=== PATIENT | male | born 1995 | race Caucasian/White ===

== ENCOUNTER 2021-05-20 07:50 | Emergency (ER) | payer MEDICAID, SELFPAY ==
[2021-05-20 07:51] VITALS: BP 134/74; PULSE 92; RESP 21; O2SAT 99
[2021-05-20 07:52] VITALS: BP 133/74; PULSE 95; RESP 19; TEMP 36.8; O2SAT 95; BMI 20.4
--- NOTE | 2021-05-20 08:07 | CT_ITS ---
STUDY: CT BRAIN WITHOUT CONTRAST REASON FOR EXAM: Male, 26 years old. Seizure RADIATION DOSAGE (If Supplied By Facility): CTDIvol = ( 44.99 ) mGy, DLP = ( 762.36 ) mGycm TECHNIQUE: Transaxial CT imaging of the brain was performed without administration of intravenous contrast material. Individualized dose optimization techniques were used for this CT. COMPARISON: No relevant priors. FINDINGS: Normal soft tissue structures. Normal calvarium. Normal size ventricles and extra-axial spaces for the patient''s age. Normal white matter tracts of the cerebral hemispheres. Normal basal ganglia and thalami. Normal brainstem. Normal cerebellum. There is no intracranial hemorrhage. There are no findings of an acute ischemic infarction. There is a 1.4 cm retention cyst or polyp along the anterior inferior aspect of the right maxillary sinus CT/Brain/Head without Contrast IMPRESSION: Normal unenhanced CT scan of the brain. Electronically Signed: Jayjay Redding MD at 9:02 EST ,
--- NOTE | 2021-05-20 08:07 | RAD_ITS ---
STUDY: X-RAY CHEST REASON FOR EXAM: Male, 26 years old. Fever TECHNIQUE: Single AP portable view of the chest. COMPARISON: None. FINDINGS: EKG electrodes are seen. The lungs are clear and expanded. There is no demonstrated pleural abnormality. Normal size heart. Normal mediastinum and manjeet. Normal visualized pulmonary arteries. Normal visualized aortic arch and descending thoracic aorta. Normal visualized thoracic spine. Normal visualized ribs, clavicles, and shoulders. There is no demonstrated abnormality of the visualized soft tissue structures of the upper abdomen. RAD/Chest 1 View (Portable) IMPRESSION: Normal x-ray examination of the chest. Electronically Signed: Jayjay Redding MD at 9:06 EST ,
--- NOTE | 2021-05-20 08:08 | CT_ITS ---
STUDY: CT ABDOMEN AND PELVIS WITH CONTRAST REASON FOR EXAM: Male, 26 years old. Abdominal pain and vomiting. Patient had a seizure today. RADIATION DOSAGE (If Supplied By Facility): CTDIvol = ( 13.90 ) mGy, DLP = ( 619.42 ) mGycm TECHNIQUE: Transaxial images were obtained from the dome of the diaphragm to the symphysis pubis without oral contrast. IV 100mL Isovue-370 was administered. Sagittal and coronal images were reconstructed. Individualized dose optimization techniques were used for this CT. COMPARISON: None. FINDINGS: The visualized lung bases are unremarkable. The visualized portions of the heart are within normal limits. Normal liver. Normal gallbladder and extrahepatic biliary system. Normal spleen. Normal pancreas. Normal bilateral adrenal glands. Normal right kidney. Normal left kidney. Normal visualized stomach. Normal small intestine. Normal colon. The appendix is visualized and appears normal. Normal abdominal aorta. Normal inferior vena cava. Normal retroperitoneum. Mildly distended urinary bladder. Normal abdominal wall. Normal osseous structures. CT/Abdomen/Pelvis W IV Cont ONLY IMPRESSION: Normal enhanced CT of the abdomen and pelvis. Mildly distended urinary bladder. Electronically Signed: Jayjay Redding MD at 9:05 EST ,
[2021-05-20 08:16] LABS: Absolute Lymphocyte Count 1.15 X10^3/uL (0.83-4.51); Absolute Neutrophil Count 3.4 X10^3/uL (2.0-7.7); Basophil# 0.03 X10^3/uL; Basophil% 0.6 % (0-1); Eosinophil# 0.01 X10^3/uL; Eosinophils% 0.2 % (0-5); Hematocrit 40.7 % (40-54); Hemoglobin 14.7 g/dL (13.0-16.5); Lymphocyte # 1.15 X10^3/ul (0.83-4.51); Lymphocyte % 21.5 % (19-41); Mean Corp Hgb Conc 36.1 g/dL (32-36); Mean Corpuscular Hgb 31.7 pg (27.0-32.0); Mean Corpuscular Volume 87.7 fL (80-94); Mean Platelet Vol. 8.4 fl (6.2-12.0); Monocyte# 0.75 X10^3/uL; NRBC Flagged by Analyzer 0 % (0-5); Neutrophil # 3.38 X10^3/uL (2.7-7.7); Neutrophil % 63.3 % (47-70); Platelet Count 179 K/mm3 (150-450); RBC Distribution Width CV 11.7 % (11.6-14.6); RBC Distribution Width SD 37.2 fl (35.1-43.9); Red Blood Count 4.64 M/mm3 (4.6-6.2); White Blood Count 5.3 K/mm3 (4.4-11.0)
[2021-05-20 08:31] LABS: ALB/GLOB Ratio 1.4 RATIO (0.9-2.4); AST(SGOT) 18 U/L (15-37); Alanine Aminotransfer ALT/SGPT 24 U/L (16-61); Albumin, Serum 4.1 g/dL (3.2-5.0); Alkaline Phosphatase 54 U/L (45-117); Anion Gap 5 (5-15); BUN 16 mg/dL (7-18); BUN/Creat Ratio 14.7 RATIO (10-20); Calcium,Total 8.5 mg/dL (8.5-10.1); Chloride 108 mmol/L (98-107); Creatinine, Serum 1.09 mg/dL (0.70-1.30); EST Glomerular Filtration Rate 88 mL/min (>60); Est Glom Filt Rate - Afr Amer 107 mL/min (>60); Estimated Creatinine Clearance 103.91 ml/min; Glucose 140 mg/dL (74-106); Lipase 38 U/L (73-393); Potassium 3.5 mmol/L (3.5-5.1); Protein, Total 7.1 g/dL (6.4-8.2); Sodium Level 139 mmol/L (136-145)
[2021-05-20] MEDS: 0.9% Normal Saline 1,000 ML 1000 ML IV (08:31)
[2021-05-20] MEDS: Ondansetron 4 MG/2 ML Vial IV (08:32)
--- NOTE | 2021-05-20 08:37 | ED.RN ---
pt slightly more alert now. nodding head for this rn . updated on testing ordered. iv zofran given for more nausea and gagging. pt 100% on ra. seizure pads in place and father at bedside.
[2021-05-20 08:51] VITALS: BP 138/68; PULSE 87; RESP 20; O2SAT 99
--- NOTE | 2021-05-20 08:59 | EX.ED.DYSGE1 ---
HPI History of Present Illness Chief Complaint: Seizure Informant: parent Narrative Narrative: 26-year-old male presenting to the emergency department with a chief complaint of seizure. Patient recently went to his doctor and was prescribed erythromycin for URI symptoms. This morning was noted to be nauseous and had altered mental status. Patient was vomiting and family states that it seemed like his hands were clenched. And he was not responding normally. There is no loss of consciousness but they felt that this was more of a seizure-like activity. EMS was called. He does not currently have a fever but recently did when he went to the doctor. PFSH PFSH Medical History no medical history Home Medications ondansetron 4 mg PO Q6H PRN PRN #15 tab 05/20/21 [Rx Last Taken Unknown] Allergy/AdvReac Type Severity Reaction Status Date / Time No Known Allergies Allergy Verified 05/16/14 13:28 Surgical History no surgical history Social History (Updated 05/20/21 @ 10:[address] Memo Epperson, DO) current gender identity: male Smoking Status: Never smoker ROS ROS ED Constitutional Constitutional ED: Reports fever(s); Denies chills or weight loss Eyes Eyes: Denies change in vision or diplopia ENT ENT ED: Reports rhinorrhea; Denies ear pain or sore throat Cardiovascular Cardiovascular: Denies chest pain, orthopnea, palpitations or racing heartbeat Respiratory/Chest Respiratory/Chest: Reports cough; Denies dyspnea or orthopnea Gastrointestinal Gastrointestinal: Reports diarrhea, nausea and vomiting; Denies abdominal pain Genitourinary Genitourinary ED: Denies dysuria, hematuria or urinary frequency Musculoskeletal Musculoskeletal: Denies arthralgias or myalgias Integumentary Denies abscess or rash Neurologic Neurologic: Denies headache(s) or weakness Psychiatric Psychiatric: Denies anxiety, depression, suicidal ideation or suicidal thoughts Endocrine Endocrinology: Denies polydipsia, polyphagia or polyuria Allergic/Immunologic Allergic/Immunologic ED: Denies mouth swelling, tongue swelling or urticaria EXAM Physical Exam Const Vital Signs: 05/20/21 07:51 05/20/21 07:52 05/20/21 08:51 Temperature 98.2 F Temperature Source Temporal Pulse Rate 92 95 87 Respiratory Rate 21 H 19 H 20 H Blood Pressure 134/74 H 133/74 H 138/68 H Blood Pressure Mean 94 93 91 Pulse Ox 99 95 99 Oxygen Delivery Method Room Air Room Air Room Air Positive well nourished and well developed General Appearance ED: well developed HEENT Reports normocephalic, head/scalp atraumatic, TM's clear and moist mucous membranes HEENT Narrative: Mild turbinate edema Negative for trauma Tympanic Membrane ED: Yes TM's clear Eyes PERRL and EOMs intact bilaterally Neck no lymphadenopathy, supple and no JVD Resp normal respiratory effort and clear to auscultation bilaterally Cardio regular rate, regular rhythm and no murmurs GI normal to inspection, nondistended, normoactive bowel sounds and non-tender Palpation: soft Back/Spine no CVA tenderness and normal ROM Extremity normal to inspection General Extremety ED: Negative for edema General Extremity: Negative for edema Neuro oriented x3 and CN's II-XII intact bilaterally Sensorium / Orientation: alert and lethargic Motor Exam: strength 5/5 throughout Psych Mood & Affect: Negative for depressed or tearful Skin no rashes or lesions noted and no wounds MDM MDM MDM Narrative Medical decision making narrative: CT the brain was negative. CT of the abdomen pelvis was negative. My interpretation of the chest x-ray is no acute process. Basic blood work was normal except for glucose of 140. Lactic acid is 1. Patient did test Covid positive. Urinalysis shows no infection toxicology does reveal methamphetamines. My opinion is that the patient was having more of a vagal episode and passing out rather than a seizure. The activity described without a loss of consciousness and in the setting of vomiting as well as a negative work-up suggest this. He has been able to ambulate. Lab Data Attestation: I reviewed the patient's lab results. Labs: Laboratory Results - last 24 hr 05/20/21 05/20/21 05/20/21 07:50 07:50 08:10 WBC 5.3 RBC 4.64 Hgb 14.7 Hct 40.7 MCV 87.7 MCH 31.7 MCHC 36.1 H RDW Std Deviation 37.2 RDW Coeff of Vidhi 11.7 Plt Count 179 MPV 8.4 Immature Gran % (Auto) 0.400 Neut % (Auto) 63.3 Lymph % (Auto) 21.5 [place] % (Auto) 14.0 H Eos % (Auto) 0.2 Baso % (Auto) 0.6 Absolute Neuts (auto) 3.4 Absolute Lymphs (auto) 1.15 Nucleated RBC % 0 Sodium 139 Potassium 3.5 Chloride 108 H Carbon Dioxide 26.0 Anion Gap 5 BUN 16 Creatinine 1.09 Estim Creat Clear Calc 103.91 Est GFR (MDRD) Af Amer 107 Est GFR (MDRD) Non-Af 88 BUN/Creatinine Ratio 14.7 Glucose 140 H Lactic Acid 1.0 Calcium 8.5 Total Bilirubin 0.60 AST 18 ALT 24 Alkaline Phosphatase 54 Total Protein 7.1 Albumin 4.1 Globulin 3.0 Albumin/Globulin Ratio 1.4 Lipase 38 L Urine Color Urine Clarity Urine pH Ur Specific [place] Urine Protein Urine Glucose (UA) Urine Ketones Urine Occult Blood Urine Nitrite Urine Bilirubin Urine Urobilinogen Ur Leukocyte Esterase Urine RBC Urine WBC Ur Squamous Epith Cells Urine Bacteria Urine Mucus Urine Opiates Screen Urine Methadone Screen Ur Barbiturates Screen Ur Phencyclidine Scrn Ur Amphetamines Screen U Methamphetamin-MDMA U Benzodiazepines Scrn Urine Cocaine Screen U Cannabinoids Screen Ur Drug Screen Comment 05/20/21 05/20/21 10:30 10:30 WBC RBC Hgb Hct MCV MCH MCHC RDW Std Deviation RDW Coeff of [place]hi Plt Count MPV Immature Gran % (Auto) Neut % (Auto) Lymph % (Auto) [place] % (Auto) Eos % (Auto) Baso % (Auto) Absolute Neuts (auto) Absolute Lymphs (auto) Nucleated RBC % Sodium Potassium Chloride Carbon Dioxide Anion Gap BUN Creatinine Estim Creat Clear Calc Est GFR (MDRD) Af Amer Est GFR (MDRD) Non-Af BUN/Creatinine Ratio Glucose Lactic Acid Calcium Total Bilirubin AST ALT Alkaline Phosphatase Total Protein Albumin Globulin Albumin/Globulin Ratio Lipase Urine Color Yellow Urine Clarity Clear Urine pH 5.0 Ur Specific [place] 1.010 Urine Protein Negative Urine Glucose (UA) Normal Urine Ketones 50 H Urine Occult Blood Negative Urine Nitrite Negative Urine Bilirubin Negative Urine Urobilinogen Normal Ur Leukocyte Esterase Negative Urine RBC 0 SEEN Urine WBC 0 SEEN Ur Squamous Epith Cells 0-5 SEEN Urine Bacteria 0 SEEN Urine Mucus 0 SEEN Urine Opiates Screen NEGATIVE Urine Methadone Screen NEGATIVE Ur Barbiturates Screen NEGATIVE Ur Phencyclidine Scrn NEGATIVE Ur Amphetamines Screen NEGATIVE U Methamphetamin-MDMA POSITIVE H U Benzodiazepines Scrn NEGATIVE Urine Cocaine Screen NEGATIVE U Cannabinoids Screen NEGATIVE Ur Drug Screen Comment Radiography Diagnostic Testing: Clinical Impression(s) from Imaging Studies Brain CT 05/20/21 08:07 IMPRESSION: Normal unenhanced CT scan of the brain. Electronically Signed: Jayjay Redding MD at 9:02 EST , Chest X-Ray 05/20/21 08:07 IMPRESSION: Normal x-ray examination of the chest. Electronically Signed: Jayjay Redding MD at 9:06 EST , Abdomen/Pelvis CT 05/20/21 08:08 IMPRESSION: Normal enhanced CT of the abdomen and pelvis. Mildly distended urinary bladder. Electronically Signed: Jayjay Redding MD at 9:05 EST , Discharge Plan Triage Chief Complaint: Seizure ED Provider: Memo Epperson Dx/Rx/DC Orders Clinical Impression: COVID-19, Syncope, Vomiting Instructions: Coronavirus Disease 2019 (COVID-19): Caring for Yourself or Others, Understanding Vasovagal Syncope Prescriptions: New ondansetron [ondansetron] 4 MG tablet 4 mg PO Q6H PRN PRN (Reason: Nausea) Qty: 15 RF: 0 Primary Care Provider: Osman Yeh Referrals: Osman Yeh DO [Primary Care Provider] - As Needed Activity Restrictions/Additional Instructions: I would discontinue the erythromycin. Disposition Disposition: Home, Self Care
[2021-05-20] MEDS: 0.9% Normal Saline 1,000 ML 150 ML IV (09:34)
[2021-05-20 10:34] LABS: Bacteria 0 SEEN /hpf (None Seen); Mucous, Urine 0 SEEN /hpf (<or=2+); Red Blood Cells-Urine 0 SEEN /hpf (0-5); White Blood Cells 0 SEEN /hpf (0-5)
[2021-05-20 10:36] LABS: Color, Urine Yellow (Yellow); Glucose, Dipstick Normal (Normal); Ketone-Dipstick 50 mg/dl (Negative); Leukocyte Esterase-Dipstick Negative /ul (Negative); Nitrite-Dipstick Negative (Negative); Occult Blood-Urine Negative /ul (Negative); Protein-Dipstick Negative (Negative); Urine Bilirubin Dipstick Negative (Negative); Urine Clarity Clear (Clear); Urine Urobilinogen Normal (Normal)
[2021-05-20 10:46] LABS: Squamous Epithelial Cells - UA 0-5 SEEN /hpf (0-5)
[2021-05-20 10:49] LABS: Amphetamine Urine VISTA NEGATIVE (<1000 ng/mL); Barbiturate Urine VISTA NEGATIVE (< 200 ng/mL); Benzodiazepine Urine VISTA NEGATIVE (< 200 ng/mL); Cocaine Urine VISTA NEGATIVE (< 300 ng/mL); Ecstacy Urine VISTA POSITIVE (< 500 ng/mL); Methadone Urine VISTA NEGATIVE (< 300 ng/mL); PCP Urine VISTA NEGATIVE (< 25 ng/mL); THC Urine VISTA NEGATIVE (< 50 ng/mL); Vista UDS pH Range 5
[2021-05-20 11:00] VITALS: BP 135/78; PULSE 88; RESP 16; O2SAT 98
[2021-05-20 11:36] VITALS: BP 135/78; PULSE 78; RESP 14; TEMP 36.6; O2SAT 97
[2021-05-20 13:40] VITALS: BP 125/85; PULSE 68; RESP 16; TEMP 36.9; O2SAT 98
--- NOTE | 2021-05-20 14:10 | NURSING ---
CALLED [facility], ETA IS 2 HRS
== END 2021-05-20 14:27 | disposition home or self-care (01) ==
PROVIDERS: Emergency Provider Emergency Medicine; PCP Student in an Organized Health Care Education/Training Program; Visit Provider Emergency Medicine
DX: U07.1 COVID-19 (principal); R55 Syncope and collapse
CPT/HCPCS: 70450; 71045; 74177; 80053; 80307; 81001; 83605; 83690; 85025; 87426; 87804; 96361; 96374; 99285; J7030; Q9967; A4216; J2405

== ENCOUNTER 2024-08-18 16:12 | Emergency (ER) | payer MEDICAID, SELFPAY ==
[2024-08-18 16:13] VITALS: BP 121/72; PULSE 53; RESP 15; TEMP 36.8; O2SAT 100; BMI 21.2
--- NOTE | 2024-08-18 17:51 | EDS_ITS ---
HPI HPI - GI History of Present Illness Chief Complaint: Diarrhea Informant: patient and parent Diarrhea/Melena/Hematochezia GI Symptom: Positive for Diarrhea Onset: Weeks Stool Quality: Positive for Loose Severity: Moderate Associated Symptoms Associated Symptoms: Negative for Dysuria, Frequency, Hematuria or Urgency Narrative Narrative: 29-year-old male who is new with his mother with surgical history currently on no meds. States has had diarrhea for the last 18 days about 8-10 episodes per day. Denies any blood. No nausea. No pain. No vomiting. Denies any prior abdominal surgeries. They drink well water. But there is 7 other people in the home and none of them have been ill or had diarrhea. Prior similar symptoms: Yes Recent Illness/Hospitalization: No PFSH PFSH Medical History no medical history no medical history Home Medications ?Medication ?Instructions ?Recorded ?Last Taken ?Type NK 08/18/24 Unknown History Allergy/AdvReac Type Severity Reaction Status Date / Time No Known Allergies Allergy Verified 08/18/24 16:13 Social History Smoking Status: Never smoker ROS ROS ED ROS Narrative Diarrhea. Constitutional Constitutional ED: Denies chills or fever(s) ENT ENT ED: Denies ear pain Cardiovascular Cardiovascular: Denies chest pain Respiratory/Chest Respiratory/Chest: Denies cough or dyspnea Gastrointestinal Gastrointestinal: Reports diarrhea; Denies abdominal pain, constipation, melena, nausea or vomiting Genitourinary Genitourinary ED: Denies dysuria or hematuria Musculoskeletal Musculoskeletal: Denies arthralgias or back pain Integumentary Denies abscess or Abrasions Neurologic Neurologic: Denies headache(s) Endocrine Endocrinology: Denies polydipsia Hematologic/Lymphatic Hematologic/Lymphatic: Denies easy bleeding Allergic/Immunologic Allergic/Immunologic ED: Denies mouth swelling, tongue swelling or urticaria EXAM Physical Exam Narrative Exam Narrative: Well-appearing 29-year-old male. Vital signs are stable afebrile. He is no distress. Sitting upright in bed. Mom present in the room. H EENT exam pupils round react to light. Very moist mucous membranes. Neck nontender no lymphadenopathy. Lungs clear to auscultation. Heart bradycardic rate in the 50s no murmur. Chest wall and ribs nontender. Abdomen soft nontender. Normal bowel sounds no peritoneal signs. No localizing tenderness. No distention. Moving all 4 extremities. Nontender no edema. Back nontender. Neurologically is awake and alert no focal motor deficits. Skin unremarkable. Const Vital Signs: 08/18/24 16:13 08/18/24 18:17 Temperature 98.3 F Temperature Source Oral Pulse Rate 53 L 57 L Respiratory Rate 15 16 Blood Pressure 121/72 H 122/65 H Blood Pressure Mean 88 84 Pulse Ox 100 98 Oxygen Delivery Method Room Air Positive well nourished and well developed; Negative for obese, cachectic, contractures or unkempt General Appearance ED: well developed and NAD; Negative for unkempt, cachectic, contractures or pallor Nutritional Appearance: Negative for cachectic or obese HEENT Reports moist mucous membranes normocephalic and atraumatic Eyes PERRL and EOMs intact bilaterally Neck no lymphadenopathy, supple and no JVD Resp normal respiratory effort and clear to auscultation bilaterally Effort and Inspection: Negative for respiratory distress Auscultation: Negative for rales, rhonchi, wheezes or diminished lung sounds Cardio regular rate, regular rhythm, S1 normal heart sound, S2 normal heart sound and no murmurs Rate: Negative for bradycardia or tachycardic Rhythm: Negative for abnormal rhythm GI non-tender, non-distended and no masses Inspection: Negative for abdominal distention Auscultation: normoactive bowel sounds Palpation: soft; Negative for tender, guarding or rebound tenderness present Back/Spine no CVA tenderness General Back: Negative for CVA tenderness Cervical Spine: Negative for cervical spine tenderness Thoracic Spine / Upper Back: Negative for thoracic spinal tenderness Lumbar Spine / Lower Back: Negative for lumbar spinal tenderness Extremity full ROM General Extremety ED: Negative for edema or tenderness General Extremity: Negative for edema Neuro CN's II-XII intact bilaterally Sensorium / Orientation: alert, oriented to person, oriented to place and oriented to time; Negative for orientation impaired, confused or lethargic Motor Exam: strength 5/5 throughout Psych mental status grossly normal and thought process normal Appearance: Negative for unkempt Attitude: No agitated Mood & Affect: Negative for depressed, anxious or tearful Skin no wounds General Skin Exam: Negative for jaundice or pallor Lesions: no lesions Rashes: no rashes Trauma: Negative for abrasion Nails: Negative for discolored MDM MDM MDM Narrative Medical decision making narrative: 29-year-old [facility] male with diarrhea for 18 days. Exam is totally normal. His abdomen is benign and nontender. He is well-hydrated. He has already been seen at the [facility] had negative (sorts and reportedly negative blood work. I will send screening labs. He will be referred to GI for further evaluation. Repeat exam patient is doing well. Be discharged home with outpatient follow-up with GI. Imodium for the diarrhea. Fluids and rest. History & Record Review Discussion w/independent historian: Patient Additional record(s) reviewed:: Prior inpatient record, Prior outpatient record, Prior ED visit and Prior labs Lab Data Attestation: I reviewed the patient's lab results. Lab results narrative: CBC normal. White count of 6. H&H 13 and 36. Platelets 227. Electrolytes are normal. Gap of 8. BUN and creatinine of 17 and 0.9. Glucose is 91. Liver enzymes are normal. Labs: Laboratory Results - last 24 hr 08/18/24 17:56 WBC 6.1 RBC 4.17 L Hgb 13.0 Hct 36.6 L MCV 87.8 MCH 31.2 MCHC 35.5 RDW Std Deviation 37.7 RDW Coeff of Vidhi 11.8 Plt Count 227 MPV 8.7 Immature Gran % (Auto) 0.200 Neut % (Auto) 49.9 Lymph % (Auto) 40.8 [place] % (Auto) 6.6 Eos % (Auto) 2.0 Baso % (Auto) 0.5 Absolute Neuts (auto) 3.0 Absolute Lymphs (auto) 2.47 Nucleated RBC % 0 Sodium 140 Potassium 4.4 Chloride 109 H Carbon Dioxide 23.2 Anion Gap 8 BUN 17 Creatinine 0.93 Estim Creat Clear Calc 123.36 Est GFR (MDRD) Non-Af 115 BUN/Creatinine Ratio 18.2 Glucose 91 Calcium 8.9 Total Bilirubin 0.16 AST 32 ALT 20 Alkaline Phosphatase 80 Total Protein 6.4 Albumin 4.2 Globulin 2.2 Albumin/Globulin Ratio 1.9 Discharge Plan Triage Chief Complaint: Diarrhea ED Provider: Juve Mondragon Dx/Rx/DC Orders Clinical Impression: Diarrhea Instructions: ED Diarrhea, Unknown Cause Prescriptions: No Action NK Primary Care Provider: Osman Yeh Referrals: Osman Yeh DO [Primary Care Provider] - FriendStiven DO [Med Staff - Active Staff] - As soon as possible Activity Restrictions/Additional Instructions: Follow-up with GI either Dr. Mayer's office or with the [facility]. For further evaluation of your diarrhea. If it is not improving you may need a colonoscopy for further evaluation and possible biopsy of your colon. Plenty of fluids. Imodium for diarrhea. Print Language: Korean Disposition Disposition: Home, Self Care
[2024-08-18 18:16] LABS: Absolute Lymphocyte Count 2.47 X10^3/uL (0.83-4.51); Basophil# 0.03 X10^3/uL; Basophil% 0.5 % (0-1); Eosinophil# 0.12 X10^3/uL; Hematocrit 36.6 % (40-54); Lymphocyte # 2.47 X10^3/ul (0.83-4.51); Lymphocyte % 40.8 % (19-41); Mean Corp Hgb Conc 35.5 g/dL (32-36); Mean Corpuscular Hgb 31.2 pg (27.0-32.0); Mean Corpuscular Volume 87.8 fL (80-94); Mean Platelet Vol. 8.7 fl (6.2-12.0); Monocyte% 6.6 % (0-10); NRBC Flagged by Analyzer 0 % (0-5); Neutrophil # 3.03 X10^3/uL (2.7-7.7); Neutrophil % 49.9 % (47-70); Platelet Count 227 K/mm3 (150-450); RBC Distribution Width CV 11.8 % (11.6-14.6); RBC Distribution Width SD 37.7 fl (35.1-43.9); Red Blood Count 4.17 M/mm3 (4.6-6.2); White Blood Count 6.1 K/mm3 (4.4-11.0)
[2024-08-18 18:17] VITALS: BP 122/65; PULSE 57; RESP 16; O2SAT 98
[2024-08-18 18:28] LABS: ALB/GLOB Ratio 1.9 RATIO (0.9-2.4); AST(SGOT) 32 U/L (<=37); Alanine Aminotransfer ALT/SGPT 20 U/L (<=46); Albumin, Serum 4.2 g/dL (3.5-5.0); Alkaline Phosphatase 80 U/L (40-129); Anion Gap 8 (5-15); BUN 17 mg/dL (4-19); BUN/Creat Ratio 18.2 RATIO (10-20); Calcium,Total 8.9 mg/dL (7.6-11.0); Carbon Dioxide 23.2 mmol/L (21.0-32.0); Chloride 109 mmol/L (98-108); Creatinine, Serum 0.93 mg/dL (0.70-1.20); EST Glomerular Filtration Rate 115 (>60); Estimated Creatinine Clearance 123.36 ml/min (50-250); Globulin 2.2 g/dL (2.2-4.2); Glucose 91 mg/dL (70-99); Potassium 4.4 mmol/L (3.3-5.1); Protein, Total 6.4 g/dL (5.9-8.4); Sodium Level 140 mmol/L (133-145); Total Bilirubin 0.16 mg/dL (0.00-1.30)
[2024-08-18 19:03] VITALS: BP 120/75; PULSE 60; RESP 19; TEMP 37; O2SAT 98
== END 2024-08-18 19:03 | disposition home or self-care (01) ==
PROVIDERS: Emergency Provider Emergency Medicine; PCP Student in an Organized Health Care Education/Training Program; Visit Provider Emergency Medicine
DX: R19.7 Diarrhea, unspecified (principal)
CPT/HCPCS: 80053; 85025; 99283; A4216

== ENCOUNTER → 2024-08-20 | Outpatient (CLI) | payer MEDICAID, SELFPAY ==
[2024-08-20 12:03] LABS: Erythrocyte Sedimentation Rate < 1 mm/hr (0-20)
[2024-08-20 12:26] LABS: Absolute Lymphocyte Count 1.98 X10^3/uL (0.83-4.51); Absolute Neutrophil Count 3.4 X10^3/uL (2.0-7.7); Basophil# 0.03 X10^3/uL; Basophil% 0.5 % (0-1); Eosinophils% 1.7 % (0-5); Hematocrit 39.1 % (40-54); Hemoglobin 13.7 g/dL (13.0-16.5); Lymphocyte # 1.98 X10^3/ul (0.83-4.51); Lymphocyte % 33.1 % (19-41); Mean Corpuscular Volume 88.5 fL (80-94); Mean Platelet Vol. 8.6 fl (6.2-12.0); Monocyte# 0.52 X10^3/uL; Monocyte% 8.7 % (0-10); NRBC Flagged by Analyzer 0 % (0-5); Neutrophil # 3.35 X10^3/uL (2.7-7.7); Neutrophil % 55.8 % (47-70); Platelet Count 245 K/mm3 (150-450); RBC Distribution Width CV 11.5 % (11.6-14.6); RBC Distribution Width SD 37.2 fl (35.1-43.9); Red Blood Count 4.42 M/mm3 (4.6-6.2)
[2024-08-20 12:41] LABS: ALB/GLOB Ratio 1.8 RATIO (0.9-2.4); AST(SGOT) 25 U/L (<=37); Alanine Aminotransfer ALT/SGPT 18 U/L (<=46); Albumin, Serum 4.4 g/dL (3.5-5.0); Alkaline Phosphatase 86 U/L (40-129); Anion Gap 8 (5-15); BUN 12 mg/dL (4-19); BUN/Creat Ratio 12.9 RATIO (10-20); Calcium,Total 9.4 mg/dL (7.6-11.0); Carbon Dioxide 26.1 mmol/L (21.0-32.0); Chloride 106 mmol/L (98-108); Creatinine, Serum 0.95 mg/dL (0.70-1.20); EST Glomerular Filtration Rate 113 (>60); Globulin 2.5 g/dL (2.2-4.2); Glucose 86 mg/dL (70-99); Potassium 4.2 mmol/L (3.3-5.1); Protein, Total 6.8 g/dL (5.9-8.4); Sodium Level 141 mmol/L (133-145)
[2024-08-20 12:48] LABS: CRP < 3.00 mg/L (0.0-3.0)
== END | disposition home or self-care (01) ==
LOC: LAB 11:19
PROVIDERS: PCP Student in an Organized Health Care Education/Training Program; Referring Provider Student in an Organized Health Care Education/Training Program; Visit Provider Student in an Organized Health Care Education/Training Program
DX: R19.7 Diarrhea, unspecified (principal)
CPT/HCPCS: 36415; 80053; 85025; 85652; 86140

== ENCOUNTER → 2024-08-27 | Outpatient (CLI) | payer MEDICAID, SELFPAY ==
[2024-08-29 12:08] LABS: Giardia Lamblia, Stool EIA Negative (Negative)
[2024-09-01 16:09] LABS: Calprotectin, Stool 8 ug/g (0-120)
== END | disposition home or self-care (01) ==
LOC: LABSPEC 14:23
PROVIDERS: PCP Student in an Organized Health Care Education/Training Program; Referring Provider Student in an Organized Health Care Education/Training Program; Visit Provider Student in an Organized Health Care Education/Training Program
DX: K58.9 Irritable bowel syndrome, unspecified (principal); R19.7 Diarrhea, unspecified
CPT/HCPCS: 83630; 83993; 87329